=== PATIENT | male | born 2000 | race Caucasian/White ===

== ENCOUNTER 2021-07-16 22:45 | Emergency (ER) | payer OTHER ==
[~2021-07-16] VITALS: Ht 180.3 cm; Wt 84.1 kg
[2021-07-16] MEDS ORDERED: OMEP40CA4 PO (22:52)
[2021-07-16] MEDS ORDERED: LIDOCAINE W/EPINEPHRINE 1% 20ML VIAL SC ONE (23:45)
[2021-07-16] MEDS ORDERED: LIDOCAINE W/EPINEPHRINE 1% 20ML VIAL As Ordered ONE (23:46)
[2021-07-17 00:37] VITALS: BP 139/70
== END 2021-07-17 00:42 | disposition home or self-care (01) ==
LOC: M ED 22:45
DX: S01.112A Laceration without foreign body of left eyelid and periocular area, initial encounter (principal); Y04.8XXA Assault by other bodily force, initial encounter; Y92.9 Unspecified place or not applicable; Y93.9 Activity, unspecified; Y99.9 Unspecified external cause status

== ENCOUNTER → 2022-09-23 | Outpatient (CLI) | payer OTHER ==
[~2022-09-23] MED LIST: OMEP40CA4 PO
== END ==
LOC: M RAD 14:33
DX: M25.561 Pain in right knee (principal)

== ENCOUNTER 2023-05-03 17:51 | Emergency (ER) | payer OTHER ==
[~2023-05-03] VITALS: Ht 180.3 cm; Wt 94.2 kg
[2023-05-03 17:53] VITALS: BP 135/75; TEMP 98.1; O2SAT 98
[2023-05-03] MEDS ORDERED: LIDOCAINE 2% MDV 20ML VIAL SC ONE (21:20)
[2023-05-03] MEDS ORDERED: DERMABOND TOPICAL SKIN ADHESIVE TOP ONE (21:20)
== END 2023-05-03 21:44 | disposition home or self-care (01) ==
LOC: M ED 17:51
DX: S61.412A Laceration without foreign body of left hand, initial encounter (principal); Y28.9XXA Contact with unspecified sharp object, undetermined intent, initial encounter; Y92.89 Other specified places as the place of occurrence of the external cause; Y93.89 Activity, other specified; Y99.8 Other external cause status